=== PATIENT | female | born 1950 | race Caucasian/White ===

== ENCOUNTER 2020-11-05 14:31 | Outpatient (CLI) | payer MEDICARE, MEDICAID, SELFPAY ==
--- NOTE | 2020-11-05 14:45 | DI.CT_ITS ---
Exam(s) CT HEAD WO EXAM: CT HEAD WO CLINICAL HISTORY: INJURY OF HEAD S09.90XA. TECHNIQUE: Imaging Protocol: Axial computed tomography images with coronal and sagittal reformatted images were created and reviewed COMPARISON: No exams were available for comparison FINDINGS: Ventricles and Extra axial spaces: Normal in size and morphology for the patient's age. No significan t atrophy. Hemorrhage: None. Cerebral parenchyma: Bilateral basal ganglia calcifications, otherwise normal. Midline shift: None. Brainstem/Cerebellum: Normal. Calvarium: Normal. No fracture. Visualized Paranasal sinuses/Mastoids: Clear. Soft Tissues: Unremarkable. IMPRESSION: No acute intracranial process. RADIATION DOSE DELIVERED: 726.64mGy.cm Total DLP DATA REPOSITORY: All CT scans at this facility are submitted to the National Radiology Data Registry (NRDR) Dose Index Registry (DIR) with the [employer] ([employer]). RADIATION OPTIMIZATION: All CT scans at this facility use at least one of these dose optimization te chniques: automated exposure control; mA and/or kV adjustment per patient size (includes targeted exa ms where dose is matched to clinical indication); or iterative reconstruction.
== END 2020-11-05 14:51 ==
PROVIDERS: PCP Internal Medicine; Visit Provider Physician Assistant Medical
DX: S09.90XA Unspecified injury of head, initial encounter (principal); X58.XXXA Exposure to other specified factors, initial encounter
CPT/HCPCS: 70450

== ENCOUNTER → 2021-10-14 15:55 | Outpatient (CLI) | payer MEDICARE, MEDICAID, SELFPAY ==
--- NOTE | 2021-10-14 | DI.RAD_ITS ---
Exam(s) XR SHOULDER RT COMPLETE 2+V EXAM: XR SHOULDER RT COMPLETE 2+V CLINICAL HISTORY: RT SHOULDER PAIN, M25.511, OVER THE LAST COUPLE OF DAYS. TECHNIQUE: 2D digital imaging was performed of the right shoulder. Five images were obtained. AP, Grashey, Y-view and axillary views were obtained. COMPARISON: No exams were available for comparison FINDINGS: BONES: No acute fracture is present. No bony destructive lesion is seen. JOINTS: No dislocation present. SOFT TISSUE: Normal. IMPRESSION: Unremarkable radiographs of the right shoulder. DATA REPOSITORY: RADIATION DOSE DELIVERED:
== END ==
PROVIDERS: PCP Internal Medicine; Visit Provider Physician Assistant Medical
DX: M25.511 Pain in right shoulder (principal)
CPT/HCPCS: 73030

== ENCOUNTER 2022-04-04 10:39 | Outpatient (REF) | payer MEDICARE, MEDICAID, SELFPAY ==
[2022-04-04 15:37] LABS: HCT 40.4 % (36.0-46.0); HGB 13.6 g/dL (11.2-15.7); MCHC 33.7 % (32.0-36.0); MCV 92 fL (80-95); MPV 10.1 fL (8.0-11.0); Platelet Count 359 10^3/uL (130-400); RBC 4.39 10^6/uL (3.93-5.22); RDW 12.1 % (11.7-14.6); RDW-SD 41.1 fL; WBC 5.43 10^3/uL (4.4-10.8)
[2022-04-04 20:42] LABS: ALT 23 U/L (14-59); AST 30 U/L (15-37); Albumin 3.8 g/dL (3.4-5.0); Alkaline Phosphatase 92 U/L (46-116); Anion Gap 10.2 mmol/L (3-11); BUN 13 mg/dL (7-18); Bilirubin, Total 0.9 mg/dL (0.2-1.0); CO2 26.8 mmol/L (21.0-32.0); CREATININE 0.9 mg/dL (0.55-1.02); Calcium 9.1 mg/dL (8.5-10.1); Calculated LDL 157 mg/dL (<100); Chloride 97 mmol/L (98-107); Cholesterol 270 mg/dL (<200); Estimated GFR 68.77 (mL/min/1.73m2); Glucose 90 mg/dL (74-106); HDL Cholesterol 90 mg/dL (40-60); Potassium 4.1 mmol/L (3.5-5.1); Sodium 134 mmol/L (136-145); Total Protein 7.8 g/dL (6.4-8.2); Triglyceride 117 mg/dL (<150)
== END 2022-04-04 10:40 | disposition home or self-care (01) ==
LOC: NCHCN 10:39
PROVIDERS: PCP Internal Medicine; Visit Provider Nurse Practitioner Family
DX: Z00.00 Encounter for general adult medical examination without abnormal findings (principal)
CPT/HCPCS: 80053; 80061; 85027

== ENCOUNTER 2023-03-22 13:18 | Outpatient (REF) | payer MEDICARE, MEDICAID, SELFPAY ==
[2023-03-22 16:10] LABS: Abs Immature Grans 0.02 10^3/uL (0.0-0.06); Absolute Basophil Count 0.05 10^3/uL (0.0-0.2); Absolute Eosinophil Count 0.14 10^3/uL (0.0-0.7); Absolute Lymphocyte Count 2.05 10^3/uL (1.2-3.4); Absolute Monocyte Count 0.46 10^3/uL (0.1-0.8); Absolute Neutrophil Count 1.75 10^3/uL (1.2-6.7); Basophils % 1.1; Eosinophils % 3.1; HCT 37.4 % (36.0-46.0); HGB 12.4 g/dL (11.2-15.7); Immature Grans % 0.4; Lymphocytes % 45.9; MCH 30.9 pg (27.0-33.0); MCHC 33.2 % (32.0-36.0); MCV 93 fL (80-95); MPV 10.3 fL (8.0-11.0); Monocytes % 10.3; Neutrophils % 39.2; Platelet Count 308 10^3/uL (130-400); RBC 4.01 10^6/uL (3.93-5.22); RDW 12.6 % (11.7-14.6); RDW-SD 43.1 fL; WBC 4.47 10^3/uL (4.4-10.8)
[2023-03-22 16:54] LABS: ALT 26 U/L (14-59); AST 27 U/L (15-37); Albumin 3.6 g/dL (3.4-5.0); Alkaline Phosphatase 84 U/L (46-116); Anion Gap 8.1 mmol/L (3-11); BUN 16 mg/dL (7-18); Bilirubin, Total 0.6 mg/dL (0.2-1.0); CO2 26.9 mmol/L (21.0-32.0); Calcium 9.3 mg/dL (8.5-10.1); Chloride 103 mmol/L (98-107); Estimated GFR 60.23 (mL/min/1.73m2); FREE T4 0.87 ng/dL (0.76-1.46); Glucose 99 mg/dL (74-106); Potassium 4.2 mmol/L (3.5-5.1); Sodium 138 mmol/L (136-145); TSH 2.68 uIU/mL (0.36-3.74); Total Protein 7.4 g/dL (6.4-8.2)
[2023-03-23 10:58] LABS: Lyme Ab w Rflx to Lyme Confirm Negative (Negative)
[2023-03-24 14:18] LABS: Anaplasma phagocytophilum Negative (Negative); B. miyamotoi PCR Negative (Negative); Babesia divergens/MO-1 Negative (Negative); Babesia duncani Negative (Negative); Babesia microti Negative (Negative); Ehrlichia chaffeensis Negative (Negative); Ehrlichia ewingii/canis Negative (Negative); Ehrlichia muris eauclairensis Negative (Negative)
== END 2023-03-22 13:19 | disposition home or self-care (01) ==
LOC: NCHCN 13:18
PROVIDERS: Visit Provider Nurse Practitioner Family
DX: R53.83 Other fatigue (principal); M25.559 Pain in unspecified hip; M25.511 Pain in right shoulder; M25.512 Pain in left shoulder; G89.29 Other chronic pain; R00.2 Palpitations
CPT/HCPCS: 80053; 87798; 84439; 84443; 85025; 86618

== ENCOUNTER → 2023-04-06 00:18 | Outpatient (CLI) | payer MEDICARE, MEDICAID, SELFPAY ==
--- NOTE | 2023-04-06 11:02 | DI.DEXA_ITS ---
Exam(s) XR DEXA BONE DENSITY W/WO CONG EXAM: XR DEXA BONE DENSITY W/WO CONG CLINICAL HISTORY: Other specified disorders of bone density and structure,other site M85.88 TECHNIQUE: COMPARISON: No exams were available for comparison FINDINGS: Lateral Spine Image: Unremarkable. No compression deformities identified. Left hip: Total T-Score: -1.8. Total Z-Score: -0.3 T- and Z-scores: Findings are consistent with osteopenia. There is osteoporosis in the femoral neck with a T-score of -2.5. Lumbar Spine: Total T-Score: -0.6 Total Z-Score: 1.6 T- and Z-scores: Within normal limits. 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
== END ==
PROVIDERS: PCP Internal Medicine; Visit Provider Nurse Practitioner Family
DX: M85.88 Other specified disorders of bone density and structure, other site (principal); Z13.820 Encounter for screening for osteoporosis
CPT/HCPCS: 77080

== ENCOUNTER 2023-04-16 12:18 | Outpatient (REF) | payer MEDICARE, MEDICAID, SELFPAY ==
[2023-04-16 15:15] LABS: Calculated LDL 151 mg/dL (<100); Cholesterol 256 mg/dL (<200); HDL Cholesterol 93 mg/dL (40-60); Triglyceride 61 mg/dL (<150)
== END 2023-04-16 12:19 | disposition home or self-care (01) ==
LOC: NCHCN 12:18
PROVIDERS: Visit Provider Nurse Practitioner Family
DX: E78.5 Hyperlipidemia, unspecified (principal)
CPT/HCPCS: 80061